=== PATIENT | female | born 1960 | race Caucasian/White ===

== ENCOUNTER 2022-11-06 08:48 | Outpatient (CLI) | payer OTHER, SELFPAY ==
[2022-11-06 09:34] LABS: Hematocrit 46.4 % (37.0-47.0); Hemoglobin 15.2 g/dL (12.0-15.0); Mean Corpuscular HGB Conc 32.8 g/dl (32-36); Mean Corpuscular Hemoglobin 30.6 pg (26-34); Mean Corpuscular Volume 93.4 fl (80-100); Mean Platelet Volume 9.3 fl (7.4-10.4); Platelet Count Result 304 k/mm3 (150-375); Red Blood Count 4.97 M/mm3 (4.2-5.4); White Blood Count 6.7 K/mm3 (4.5-10.0)
[2022-11-06 09:53] LABS: Alanine Aminotransferase 19 U/L (6-35); Albumin Level 3.9 g/dL (3.5-5.1); Alkaline Phosphatase 78 U/L (38-126); Anion Gap 7 mmol/L (8-16); Aspartate Amino Transferase 21 U/L (14-36); Bilirubin,Total 0.4 mg/dL (0.2-1.3); Blood Urea Nitrogen 12 mg/dL (7-17); Calcium 8.5 mg/dL (8.4-10.2); Carbon Dioxide 28 mmol/L (22-30); Chloride 105 mmol/L (98-107); Cholesterol 216 mg/dL (0-200); Estimated Glomerular Filt Rate 57; Glucose 106 mg/dL (65-110); HDL Direct 39 mg/dL; Potassium 3.8 mmol/L (3.4-5.0); Sodium 140 mmol/L (137-145); Triglycerides 96 mg/dL (<150)
[2022-11-06 10:02] LABS: Vitamin D 25 Hydroxy 28.8 ng/mL
[2022-11-06 10:04] LABS: LDL Cholesterol Direct 136 mg/dL
[2022-11-06 10:25] LABS: Cortisol Random 8.91 ug/dL
[2022-11-12 13:08] LABS: Testosterone Free 2.7 pg/mL (0.1-6.4); Testosterone Total 21 ng/dL (2-45)
[2022-11-12 21:26] LABS: Estrogen 97.3 pg/mL
== END 2022-11-06 08:49 | disposition home or self-care (01) ==
LOC: ANHLAB 08:51
PROVIDERS: Visit Provider Nurse Practitioner Family
DX: R42 Dizziness and giddiness (principal); R53.83 Other fatigue; E55.9 Vitamin D deficiency, unspecified; R23.2 Flushing; Z13.1 Encounter for screening for diabetes mellitus; Z13.29 Encounter for screening for other suspected endocrine disorder; Z13.220 Encounter for screening for lipoid disorders
CPT/HCPCS: 36415; 80053; 80061; 82306; 82533; 82607; 82672; 84402; 84403; 84443; 85027

== ENCOUNTER 2023-06-30 10:08 | Outpatient (CLI) | payer OTHER, SELFPAY ==
--- NOTE | ~2023-06-30 | US_ITS ---
EXAMINATION: US transvaginal DATE: 06/30/2023 10:32 INDICATION: Postmenopausal bleeding Comparison:No prior studies for comparison. TECHNIQUE: Multiple transabdominal and endovaginal sonographic images of the pelvis performed. FINDINGS: The uterus measures 10.3 x 6.3 x 7.6 cm. There is an hyperechoic mass of the uterus measuri ng 5.8 cm which may contiguous with the endometrium. Endometrial mass not excluded. Alternatively thi s represents a uterine fibroid. The endometrial complex measures 12 mm. The ovaries are not identified. There is no free fluid in the pelvis. There are no abnormal masses seen on either side. IMPRESSION: 1. Slightly hyperechoic uterine mass contiguous with the endometrium measuring 5.8 cm which may repre sent a uterine fibroid or endometrial. Endometrium is thickened otherwise measuring 12 mm. The differ ential diagnosis includes endometrial hyperplasia, polyp and carcinoma. Biopsy is recommended. Reviewed, dictated and finalized at location L. IMPRESSION: 1. Slightly hyperechoic uterine mass contiguous with the endometrium measuring 5.8 cm which may represent a uterine fibroid or endometrial. Endometrium is thi ckened otherwise measuring 12 mm. The differential diagnosis includes endometri al hyperplasia, polyp and carcinoma. Biopsy is recommended.
== END 2023-06-30 10:09 ==
LOC: MICIMG 10:09
PROVIDERS: PCP Family Medicine; Visit Provider Family Medicine
DX: N95.0 Postmenopausal bleeding (principal)
CPT/HCPCS: 76830

== ENCOUNTER 2023-07-25 00:47 | Day surgery (SDC) | payer OTHER, SELFPAY ==
[2023-07-22 09:58] VITALS: BMI 25.6
--- NOTE | 2023-07-22 10:00 | PC.NURSE ---
Report to the Outpatient Waiting Room, entrance under the green pavilion located off [facility], at time _0830_ on date _[id number]_. Planned Procedure Time: _1030_. Time changes happen often and if your time is changed the preop area will call you the afternoon before. - You and your visitor will be asked to self-screen and do not enter if you have any COVID symptoms. - A mask is optional within the hospital at this time. Patients may have clear liquids (water, carbonated beverages, clear teas, apple juice) until 3 hours prior to surgery with a maximum of 20 ounces. - No food from midnight until time of surgery Take the following medications with a SIP of water the morning of surgery: ___Bupropion DO NOT STOP ANY OF YOUR OTHER PRESCRIPTION MEDICATIONS PRIOR TO SURGERY ?EXCEPT THE FOLLOWING Medications to discontinue per physician Multivitamin Date to take last dose___Stop now. Please no make-up, nail romanian, hairspray, perfume, deodorant, or body powder the day of surgery. No jewelry (including any body piercings) or valuables the day of surgery, leave them at home. Please take a shower or bath the night before, or the morning of, surgery with an antibacterial soap. Wear comfortable, loose fitting clothing. - Jewelry must be removed prior to entering the operating room. Rings and piercings that are not removed may be cut off. - The hospital will not accept responsibility for valuables. - Please leave all valuables, including medications, at home the day of surgery. If you are going home after surgery, a licensed commercial driver must drive you home. - NO public transportation without another adult if you receive anesthesia. - We recommend that an adult stay with you for 24 hours following discharge. - We also recommend that you do not drive, make important decision, drink alcoholic beverages, or take any drugs that were not prescribed by your health care provider for at least 24 hours after your discharge time. Follow any additional instructions given to you from your surgeon. If you or anyone in your household have experienced Covid symptoms in the past week, please notify your surgeon or the nurse liaison at the phone number below for possible testing. Telephone instructions given to __Patient__and asked if any additional questions and then verbalized understanding. Patient advised to call surgeon office or pre surgery nurse liaison [phone] if any additional questions.
--- NOTE | 2023-07-25 08:20 | WPDHPUPDATE1 ---
History and Physical Update Update Date/Time: 07/25/23 08:20 History and Physical has been reviewed, including an updated exam of the patient. There are NO changes in the patient's condition. Risks, benefits, and alternatives have been discussed and questions answered. Patient agrees to proceed with procedure.
--- NOTE | 2023-07-25 08:21 | WPDHPUPDATE1 ---
History and Physical Update Update Date/Time: 07/25/23 08:21 History and Physical has been reviewed, including an updated exam of the patient. There are NO changes in the patient's condition. Risks, benefits, and alternatives have been discussed and questions answered. Patient agrees to proceed with procedure.
--- NOTE | 2023-07-25 08:21 | PM.HPGS ---
History of Present Illness History of Present Illness Consent: Risks, benefits, and alternatives have been discussed and questions answered. Patient agrees to proceed with procedure. Chief complaint: Post Menopausal Bleeding Narrative: Oly Hill is a 63 year old female who presented as a new patient July 08 from her primary physician. The patient reports that she began having pink spotting in 2020 on and off until March of 2023 when she began having vaginal bleeding requiring a change in her tampon and pad approximately 6 times per day with clotting. Primary physician ordered a pelvic ultrasound which was performed week prior to her visit and revealed a thickened endometrium at 12mm as well as a uterine mass suspected to be a fibroid. It was recommended to undergo D&C hysteroscopy. Risks of infection, bleeding, perforation and possible pathology are reviewed. Patient voices understanding and agrees to proceed. Review of Systems Review of Systems: not repeated day of surgery; patient states no changes in status PMFSH Past Medical History Medical History (Updated 07/25/23 @ 08:25 by Meera Shields MD) Anxiety and depression BMI 29.0-29.9,adult Hypercholesterolemia Surgical History Surgical History (Updated 07/25/23 @ 08:24 by Meera Shields MD) H/O section X2 Family History Family History Father Hypertension Malignant neoplasm of prostate Diabetes mellitus Mother Heart disease Hypertension Depression Diabetes mellitus Colon polyp Sibling Diabetes mellitus Social History Social History Smoking packs per day: 1 Smoking cigarettes per day: 20.0 Years smoked: 30 Smoking pack-years: 30.00 Smoking status: Former smoker Tobacco type: cigarettes and e-cigarettes/vaping Second hand tobacco smoke exposure: No Smoking end date: 09/16/14 Additional smoking assessment comments: quit cigarettes sep 2015. 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 Gender identity (if verbalized by the patient): Female Spiritual care concerns: No Meds Home Medications and Allergies Home Medications Medication Instructions Recorded Confirmed Type multivitamin with minerals-folic 1 tablet PO DAILY 10/21/22 02/14/23 History acid 200 mcg chewable tablet (Women's Multivitamin Gummies) meclizine 25 mg tablet 25 mg PO TID PRN dizziness #30 tabs 11/24/22 11/24/22 Rx bupropion HCl 150 mg 24 hr tablet, 150 mg PO QAM #30 tabs 06/30/23 Rx extended release (Wellbutrin XL) alprazolam 0.25 mg tablet 0.25 mg PO DAILY PRN anxiety #10 07/21/23 Rx tabs ondansetron HCl 4 mg tablet 4 mg PO Q6H PRN nausea and 07/21/23 Rx vomiting #30 tabs Allergies Allergy/AdvReac Type Severity Reaction Status Date / Time No Known Allergies Allergy Verified 07/22/23 09:49 Exam Const: General: healthy appearing and alert Orientation/consciousness: patient oriented x3 Resp: Effort & Inspection: normal respiratory effort GI: GI Palp: Yes Soft to palpation, No Tenderness to palpation present (GI) and No Palpable mass present : External Female Exam: normal external appearance Speculum Exam - Vagina: normal appearance of the vagina and normal vaginal discharge Speculum Exam - Cervix: normal appearance of the cervix Bimanual exam- vagina & uterus: uterine size normal (Approximately 10 week size) and consist
[2023-07-25 08:30] VITALS: BP 130/74; PULSE 91; RESP 20; TEMP 36.8; O2SAT 99; BMI 24.7
[2023-07-25] MEDS: ACETAMINOPHEN 500 MG TABLET 1000 MG PO (09:43)
[2023-07-25] MEDS: LACTATED RINGERS 1,000 ML 30 ML IV CONT (09:43)
--- NOTE | 2023-07-25 09:51 | WPDANESEPPF ---
Anes - Initial Pre Proc Eval Procedure: Operation Date: 07/25/23 10:30 Proposed Procedures p Hysteroscopy Dilation and Curettage - Meera Shields MD Date/Time: 07/25/23 09:51 Surgeon: Meera Shields MD Pre Op Diagnosis: Post Menopausal Bleeding Patient Data Age: 63 Gender: F Height: 1.57 m Weight: 61.4 kg Last Vital Signs Temp 36.8 C 07/25/23 08:30 Pulse 91 07/25/23 08:30 Resp 20 07/25/23 08:30 BP 130/74 07/25/23 08:30 Pulse Ox 99 07/25/23 08:30 O2 Del Method Room Air 07/25/23 08:30 Allergies Allergy/AdvReac Type Severity Reaction Status Date / Time No Known Allergies Allergy Verified 07/22/23 09:49 Home Medications Medication Instructions Recorded Confirmed Type multivitamin with minerals-folic 1 tablet PO DAILY 10/21/22 07/25/23 History acid 200 mcg chewable tablet (Women's Multivitamin Gummies) meclizine 25 mg tablet 25 mg PO TID PRN dizziness #30 tabs 11/24/22 07/25/23 Rx bupropion HCl 150 mg 24 hr tablet, 150 mg PO QAM #30 tabs 06/30/23 07/25/23 Rx extended release (Wellbutrin XL) alprazolam 0.25 mg tablet 0.25 mg PO DAILY PRN anxiety #10 07/21/23 07/25/23 Rx tabs ondansetron HCl 4 mg tablet 4 mg PO Q6H PRN nausea and 07/21/23 07/25/23 Rx vomiting #30 tabs Patient hx anesthesia problems: none Family hx anesthesia problems: none Results Review: All pre-operative results and documents have been reviewed as part of the pre-operative evaluation. [facility] Past Medical History Medical History Anxiety and depression BMI 29.0-29.9,adult Hypercholesterolemia Surgical History Surgical History H/O section X2 Family History Family History Father Hypertension Malignant neoplasm of prostate Diabetes mellitus Mother Heart disease Hypertension Depression Diabetes mellitus Colon polyp Sibling Diabetes mellitus Social History Social History Smoking packs per day: 1 Smoking cigarettes per day: 20.0 Years smoked: 30 Smoking pack-years: 30.00 Smoking status: Former smoker Tobacco type: cigarettes and e-cigarettes/vaping Second hand tobacco smoke exposure: No Smoking end date: 09/16/14 Additional smoking assessment comments: quit cigarettes sep 2015. 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 Informed Consent: The patient's anesthetic plan and its attendant risks and benefits were discussed with the patient/family/POA. Questions were solicited and answers provided to the satisfaction of the patient/family/POA.
[2023-07-25 11:19] VITALS: BP 145/71; PULSE 89; RESP 14
--- NOTE | 2023-07-25 11:20 | P.OP_ITS ---
Procedure Note - Detailed Date of Procedure 07/25/23 Pre-op Diagnosis Post Menopausal Bleeding Post-op Diagnosis Same Procedure Performed D&C hysteroscopy Surgeon Meera Shields MD Anesthesia MAC Findings Uterus sounds to 8cm. The endometrium was full of fluffy, papillary, vascular tissue. Description of Procedure The patient was taken to the operating room and placed under anesthesia in the dorsal lithotomy position. She was prepped and draped in the usual sterile fashion. Elliott bivalve speculum was placed in the vagina and the cervix grasped on the anterior lip with a tenaculum. The uterus is sounded to 8cm. The diagnostic hysteroscope was placed and the endometrium was full of tissue making visualization poor. The Aveeta resection device is placed and a large amount of the tissue is resected. When visualization became to poor to cecile nue, hysteroscope was removed. The sharp curette is used to curette the endometrium and a very large amount of tissue was removed. Once no further tissue is noted and most areas have a good uterine cry, all instruments are removed. Sponge, needle, and instrument counts are correct per the OR staff. Patient is awakened from anesthesia and taken to recovery in stable condition. Estimated Blood Loss 50 Drains No Packing No Pathology Yes (Endometrial shavings and curettings) Complications No immediate complications Condition Stable Disposition PACU
[2023-07-25] MEDS: fentaNYL CITRATE INJ (*CRX) 100 MCG/2 ML VIAL 25 MCG IV PUSH ×2 (11:29→11:50)
[2023-07-25 11:45] VITALS: BP 125/68; PULSE 76; RESP 20
[2023-07-25] MEDS: oxyCODONE HCL (*CRX) 5 MG TAB IR PO (11:57)
[2023-07-25 12:15] VITALS: BP 101/74; PULSE 72; RESP 20
== END 2023-07-25 12:25 | disposition home or self-care (01) ==
PROVIDERS: PCP Family Medicine; Visit Provider Obstetrics & Gynecology Gynecology
PROC: 0U5B8ZZ Destruction of Endometrium, Via Natural or Artificial Opening Endoscopic (ICD-10-PCS; CPT 58563; principal; 2023-07-25 10:30)
DX: N95.0 Postmenopausal bleeding (principal); F41.8 Other specified anxiety disorders; E78.00 Pure hypercholesterolemia, unspecified; Z87.891 Personal history of nicotine dependence; F12.90 Cannabis use, unspecified, uncomplicated
CPT/HCPCS: 58558; 88305; 88342; A9270; J2250; J2405; J2704; J3010; J7120

== ENCOUNTER 2023-09-07 11:36 | Outpatient (CLI) | payer OTHER, SELFPAY ==
[2023-09-07 12:37] LABS: Basophils Absolute Auto 0.1 K/mm3 (0.0-0.1); Basophils Percent Auto 0.9 % (0.2-1.2); Eosinophils Absolute Auto 0.1 K/mm3 (0-0.3); Hematocrit 44.6 % (37.0-47.0); Hemoglobin 13.3 g/dL (12.0-15.0); Immature Granulocyte Absolute 0.03 K/mm3 (0.00-0.031); Immature Granulocyte Percent A 0.4 % (0-0.5); Lymphocytes Absolute Auto 2.07 K/mm3 (0.9-3.2); Mean Corpuscular HGB Conc 29.8 g/dl (32-36); Mean Corpuscular Hemoglobin 25.8 pg (26-34); Mean Corpuscular Volume 86.6 fl (80-100); Mean Platelet Volume 9.2 fl (7.4-10.4); Monocytes Absolute Auto 0.5 K/mm3 (0.1-0.6); Monocytes Percent Auto 7.7 % (2.6-8.5); Neutrophils Absolute Auto 4.1 K/mm3 (1.3-6.7); Platelet Count Result 492 k/mm3 (150-375); Red Blood Count 5.15 M/mm3 (4.2-5.4); Red Cell Distribution Width 14.6 % (11.5-14.5); White Blood Count 6.9 K/mm3 (4.5-10.0)
[2023-09-07 12:41] LABS: Alanine Aminotransferase 17 U/L (6-35); Albumin Level 4.5 g/dL (3.5-5.1); Alkaline Phosphatase 87 U/L (38-126); Anion Gap 12 mmol/L (8-16); Aspartate Amino Transferase 24 U/L (14-36); Bilirubin,Total 0.4 mg/dL (0.2-1.3); Blood Urea Nitrogen 8 mg/dL (7-17); Calcium 9.3 mg/dL (8.4-10.2); Carbon Dioxide 26 mmol/L (22-30); Chloride 102 mmol/L (98-107); Estimated Glomerular Filt Rate 56; Glucose 102 mg/dL (65-110); Potassium 3.5 mmol/L (3.4-5.0); Sodium 140 mmol/L (137-145)
[2023-09-07 13:08] LABS: Hypochromasia 1+ (NORMAL); Platelet Estimate Increased (Adequate); Schistocytes None Seen (NORMAL)
== END 2023-09-07 11:37 | disposition home or self-care (01) ==
LOC: ANHLAB 11:40
PROVIDERS: PCP Family Medicine
DX: D49.59 Neoplasm of unspecified behavior of other genitourinary organ (principal)
CPT/HCPCS: 36415; 80053; 85025

== ENCOUNTER 2023-09-12 07:54 | Outpatient (CLI) | payer OTHER, SELFPAY ==
[2023-09-12 09:27] LABS: Iron 40 ug/dL (37-170)
[2023-09-12 09:36] LABS: Percent Iron Saturation 11 % (20-50)
== END 2023-09-12 07:55 | disposition home or self-care (01) ==
LOC: ANHLAB 07:56
PROVIDERS: PCP Family Medicine; Visit Provider Family Medicine
DX: E61.1 Iron deficiency (principal)
CPT/HCPCS: 36415; 82728; 83540; 83550

== ENCOUNTER 2023-09-27 08:00 | Outpatient (CLI) | payer OTHER, SELFPAY ==
--- NOTE | ~2023-09-27 | PE_ITS ---
EXAMINATION: PET skull to mid thigh DATE: 09/27/2023 09:47 INDICATION: Solitary pulmonary nodule, recent hysterectomy TECHNIQUE: Blood glucose level was 134 mg/dL. 9.258 mCi of 18-fluorodeoxyglucose (18-FDG) was adminis tered i.v. Low dose computed tomography (CT) images were acquired from the base of the brain to the p roximal thighs for attenuation correction and anatomic localization. Positron emission tomography (PE T) images were acquired in the same distribution beginning 62 minutes after injection. The dose-lengt h product (DLP) was 747.06 mGy-cm. COMPARISON: 09/03/2023 FINDINGS: Head/neck: No abnormal FDG uptake is identified. Chest: There is a 1.8 x 1.5 cm nodule of the left lung apex with abnormal FDG uptake and SUV max of 7 .1. There is mild emphysema. No additional pulmonary nodules are identified. No pathologically enlarg ed thoracic lymph nodes are identified. The heart size is normal. No pleural effusion or pneumothorax . Calcified coronary artery atherosclerosis is noted. There is subcutaneous gas posteriorly in the ch est wall which extends into the right axilla. Abdomen/pelvis/proximal thighs: No abnormal FDG uptake is identified. Physiologic FDG activity is pre sent in the bowel and urinary tract. There is a 9 mm cyst of the left hepatic lobe. The spleen, pancr eas, gallbladder, and adrenal glands are normal. The right kidney is unremarkable. There is a 4.2 cm cyst of the left kidney upper pole. No pathologically enlarged abdominal or pelvic lymph nodes are id entified. There are no dilated loops of bowel. There is diffuse abdominal and pelvic gas as well as g as in the subcutaneous tissues of the abdominal wall and proximal lower extremities, consistent with history of recent hysterectomy. There is a trace volume of pelvic ascites. Musculoskeletal: No abnormal FDG uptake is identified. IMPRESSION: 1. Left upper lobe nodule with abnormal FDG uptake, consistent with primary bronchogenic carcinoma. C T-guided biopsy is recommended. 2. Diffuse subcutaneous gas and intra-abdominal and pelvic gas, consistent with recent hysterectomy. Reviewed, dictated and finalized at location L. GER MOBILITY IMPRESSION: 1. Left upper lobe nodule with abnormal FDG uptake, consistent with primary bro nchogenic carcinoma. CT-guided biopsy is recommended. 2. Diffuse subcutaneous gas and intra-abdominal and pelvic gas, consistent with recent hysterectomy.
[2023-09-27 08:19] LABS: Glucose Point of Care 134 mg/dl (65-105)
== END 2023-09-27 08:01 | disposition home or self-care (01) ==
LOC: ANHIMG 08:02
PROVIDERS: PCP Family Medicine; Visit Provider Family Medicine
DX: R91.1 Solitary pulmonary nodule (principal); R14.0 Abdominal distension (gaseous)
CPT/HCPCS: 78815; A9552

== ENCOUNTER 2023-09-30 05:42 | Outpatient (CLI) | payer OTHER, SELFPAY ==
[2023-09-29 09:50] VITALS: BMI 24.7
--- NOTE | 2023-09-29 09:50 | PC.NURSE ---
Pre Radiology instructions Report to the outpatient [facility] on date 09/30/23 at time 0900 for procedure Time: 1100. YOU MAY BE MONITORED AT HOSPITAL FOR UP TO 4 HOURS AFTER YOUR PROCEDURE. A visitor will be allowed to accompany the patient into the hospital. You and your visitor will be asked to self-screen and do not enter if you have any COVID symptoms. A mask is OPTIONAL within the hospital. Patients are to have no food or drink 6 hours prior to procedure time Driving will be restricted after the procedure, you must have a person to drive you home. Labs will be drawn in preop area and once reviewed, you will be taken to radiology area for procedure. When the procedure is completed, you will be taken to outpatient where you will be monitored for several hours. You may have one visitor in this area. Other than holding anti-coagulants, patient may take other medication(s) as scheduled. Prior to your appointment date patients are instructed to hold anti-coagulants after discussing with ordering provider to stop. If unable to discontinue anti-coagulants please notify radiologist. ? No aspirin or warfarin (Coumadin) for 7 days prior to the procedure. ? No clopidogrel (Plavix), ticagrelor (Brilinta), prasugrel (Effient) or dabigatran (Pradaxa) for 5 days prior to the procedure. ? No rivaroxaban (Xarelto), apixaban (Eliquis), dipyridamole (Aggrenox or Persantine) or cilostazol (Pletal) for 2 days prior to the procedure. Medications to discontinue per physician: N/A Date to take last dose: N/A Please leave all valuables, including medications, at home the day of procedure. The hospital will not accept responsibility for valuables. Wear comfortable, loose fitting clothing.? Follow any additional instructions given to you from ordering provider. Telephone instructions given to PT CARMEN LOPES and asked if any additional questions and then verbalized understanding. Patient advised to call scheduling provider office or registration scheduling [phone] if any additional questions.
[2023-09-30] VITALS (10 sets, daily range): BP systolic 109–137; BP diastolic 65–73; PULSE 73–95; RESP 16–20; TEMP 36.9; O2SAT 97–100
--- NOTE | ~2023-09-30 | XR_ITS ---
EXAMINATION: XR chest 1V DATE: 09/30/2023 11:39 INDICATION: Left lung nodule status post percutaneous biopsy. TECHNIQUE: A single frontal view of the chest was obtained. COMPARISON: Chest single view 07/23/21 FINDINGS: There is a nodule in left lung upper lobe. No pleural effusion or pneumothorax. The heart s ize is normal. IMPRESSION: 1. Nodule in left lung upper lobe suspicious for primary bronchogenic carcinoma. Reviewed, dictated and finalized at location A. PMENT SERVICES ASSOCIATE IMPRESSION: 1. Nodule in left lung upper lobe suspicious for primary bronchogenic carcinoma .
--- NOTE | ~2023-09-30 | XR_ITS ---
EXAMINATION: XR chest 1V portable DATE: 09/30/2023 14:33 INDICATION: Left lung nodule status post percutaneous biopsy. TECHNIQUE: A single frontal view of the chest was obtained on 2 radiographs. COMPARISON: Chest single view at 12:31 PM FINDINGS: There is a nodule in left lung upper lobe. No pleural effusion or pneumothorax. The heart s ize is normal. IMPRESSION: 1. Nodule in left lung upper lobe suspicious for primary bronchogenic carcinoma. Reviewed, dictated and finalized at location A. A SAMPLER IMPRESSION: 1. Nodule in left lung upper lobe suspicious for primary bronchogenic carcinoma .
--- NOTE | ~2023-09-30 | CT_ITS ---
. EXAMINATION: CT biopsy lung w/imaging DATE: 09/30/2023 11:45 INDICATION: Solitary pulmonary nodule. TECHNIQUE: The procedure including the risks, benefits, and alternatives and possibility of chest tub e placement were discussed with the patient. Risks discussed included infection, hemorrhage, approxim ately 1/3 risk of pneumothorax, approximately 1/10 risk of pneumothorax severe enough to warrant ches t tube placement, and rarely . The patient understood the risks and agreed to proceed. The patie nt was placed prone. The skin overlying the left chest was prepped and draped in sterile fashion. A nesthetic was administered with 1% lidocaine subcutaneously. A 19 gauge outer needle was advanced un susan CT guidance to the lesion of interest. A 20 gauge core biopsy needle was then used to obtain 4 co re biopsy specimens. The needle was removed and the entry site was cleaned and dressed. The mA was ad justed according to patient size. Iterative reconstruction technique was employed. The dose-length pr oduct was 195.10 mGy-cm. There were no immediate complications. FINDINGS: CT images demonstrate the outer needle tip in a 2.2 cm nodule in left lung upper lobe. IMPRESSION: 1. CT-guided core needle biopsy of a 2.2 cm nodule in left lung upper lobe. Reviewed, dictated and finalized at location A. MER OPERATOR THREE KNIFE
--- NOTE | ~2023-09-30 | XR_ITS ---
EXAMINATION: XR chest 1V portable DATE: 09/30/2023 12:35 INDICATION: Lung nodule status post previous biopsy. TECHNIQUE: A single frontal view of the chest was obtained. COMPARISON: Chest single view at 11:38 AM FINDINGS: There is a nodule in left lung upper lobe. No pleural effusion or pneumothorax. The heart s ize is normal. IMPRESSION: 1. Nodule in left lung upper lobe suspicious for primary bronchogenic carcinoma. Reviewed, dictated and finalized at location A. ETIC TAPE COMPOSER OPERATOR IMPRESSION: 1. Nodule in left lung upper lobe suspicious for primary bronchogenic carcinoma .
[2023-09-30 09:35] LABS: Mean Platelet Volume 8.3 fl (7.4-10.4); Platelet Count Result 441 k/mm3 (150-375)
[2023-09-30 09:45] LABS: INR 0.9; Prothrombin Time 12.5 Seconds (11.1-14.7)
== END 2023-09-30 15:05 | disposition home or self-care (01) ==
PROVIDERS: PCP Family Medicine; Visit Provider Radiology Diagnostic Radiology
PROC: BB24ZZZ Computerized Tomography (CT Scan) of Bilateral Lungs (ICD-10-PCS; CPT 32408; principal; 2023-09-30 11:00)
DX: C34.12 Malignant neoplasm of upper lobe, left bronchus or lung (principal)
CPT/HCPCS: 32408; 36415; 71045; 85049; 85610; 88305; 88342

== ENCOUNTER 2023-11-18 12:29 | Outpatient (CLI) | payer OTHER, SELFPAY ==
[2023-11-18 13:52] LABS: Alveolar/Arterial O2 Gradient 22.5 mmHg; Base Excess ABG -0.3 mEq/l (+/-2.0); Carboxyhemoglobin 0.4 % THb (0-2.0); Fractional Inspired Oxygen 21 %; HCO3 ABG 23.5 mEq/l (22.0-26.0); Methemoglobin ABG 0.3 %THb (0-1.5); Oxygen Content ABG 17.9 %vol (16.0-22.0); Oxygen Saturation ABG 96.7 % (95.0-100.0); Oxyhemoglobin 95.6 % THb (90.0-100.0); PCO2 ABG 35.5 mmHg (35.0-45.0); PO2 ABG 84.7 mmHg (80.0-100.0); PO2 FiO2 Ratio Arterial Blood 4.03 %; Reduced Hemoglobin 3.7 %THb (0-5.0); Total Hemoglobin 13.3 g/dL (12.0-18.0); pH ABG 7.438 (7.350-7.450)
[2023-11-18 14:02] LABS: Device ROOM AIR; Modified Allen's Test Pass
--- NOTE | 2023-11-18 16:24 | WPDSIXMINUTE ---
Six Minute Walk Procedure Procedure Performed Pulmonary Stress Test (6 min walk) Six Minute Walk Six Minute Walk: This is a 6 minute walk test. The test was performed and interpreted in accordance with the 2014 ERS/ATS task force guidelines. Findings:? The patient's resting room air oxygen saturation measured by pulse oximetry was 82% and heart rate was 99 bpm.? Patient ambulated for 335 meters and oxygen saturation remained 94 to 98%.? Heart rate at the end of the study was 106 bpm. The patient did not qualify for supplemental oxygen at rest or with ambulation. There are no prior studies for comparison.
--- NOTE | 2023-11-18 16:25 | WPDPFTINT ---
PFT Procedure Performed PFT Procedure Performed Spirometry with Pre/Post Bronchodilator Plethysmography (Lung Vol) Diffusing Cap (DLCO) Flow Vol Loop PFT Interpretation This is a pulmonary function test with pre and post-bronchodilator spirometry, plethysmography, diffusing capacity and rest room air arterial blood gas.? The test was performed and results interpreted in accordance with the 2019 and 2005 ATS/ERS Task Force guidelines respectively using the Global Lung Function Initiative-2012 reference equations. Patient demonstrated good effort and cooperation. Reproducibility criteria were met. The quality of the pre bronchodilator spirometry maneuver was Grade A and post bronchodilator spirometry maneuver was Grade A. Findings: Spirometry:? The contour the inspiratory and expiratory flow tracing are normal.? The pre bronchodilator FVC is 3.84 L, 132% predicted.? The pre bronchodilator FEV1 is 2.67 L, 116% predicted.? The pre bronchodilator FEV1:? FVC ratio 70%.? The post bronchodilator FVC is 3.72 L, representing a 3% decrease.? The post bronchodilator FEV1 is 2.74 L, representing a 3% increase.? The post bronchodilator FEV1: FVC ratio 74%.? Plethysmography:? The total lung capacity is 5.97 L, 126% predicted.? The functional residual capacity is 3.78 L, 142% predicted.? The residual volume is 2.13 L, 112% predicted.? Diffusing capacity:? The diffusing capacity unadjusted for hemoglobin and carboxyhemoglobin is 17.0, 82% predicted.? The diffusing capacity adjusted for alveolar volume is 3.25, 72% predicted. Rest room arterial blood gas: PH 7.44, PaCO2 36, PaO2 85. Impression: The spirometry is normal without evidence of an obstructive abnormality. There is no significant improvement after inhaling a single dose of albuterol.? The total lung capacity and functional residual capacity are increased with a normal residual volume:? Total lung capacity ratio consistent with large lungs. The diffusing capacity is normal.? The rest room arterial blood gas is normal. There are no prior studies for comparison
== END 2023-11-18 12:30 | disposition home or self-care (01) ==
PROVIDERS: Visit Provider Internal Medicine Pulmonary Disease
DX: J44.9 Chronic obstructive pulmonary disease, unspecified (principal)
CPT/HCPCS: 36600; 82375; 82805; 83050; 94060; 94618; 94726; 94729

== ENCOUNTER 2024-01-10 08:03 | Outpatient (CLI) | payer OTHER, SELFPAY ==
--- NOTE | ~2024-01-10 | CT_ITS ---
EXAMINATION: CT diagnostic chest w con DATE: 01/10/2024 08:51 INDICATION: MALIGNANT NEOPLASM OF LUNG,UNSPECIFIED TECHNIQUE: Computed tomography (CT) of the chest was performed with 100 mL Omnipaque-350 intravenous contrast. Additional 3D reconstructions utilizing coronal maximum intensity projection (MIP) were per formed. Automated exposure control and iterative reconstruction technique were employed. The dose-sydnee gth product was 134.09 mGy-cm. COMPARISON: PET/CT dated 09/27/2023 FINDINGS: Mild emphysema. Postoperative change of prior left upper lobectomy with mild scarring along the jorge luis ediastinal superior segment of the left lower lobe which extends to the apex. A volume loss in left h emithorax with elevation the left hemidiaphragm. No suspicious pulmonary nodules, pneumonia, pulmonar y edema or pleural effusion. Arch size is normal. No pericardial effusion. Thoracic aorta is normal i n caliber with no dissection. No pathologically enlarged thoracic lymphadenopathy. Unchanged 7 mm enh ancing nodule at the medial limb of the left adrenal gland which was without increased FDG uptake on the prior PET study. 4.2 cm exophytic left renal cyst. 1.6 cm cyst in the left hepatic lobe. Bones ar e unremarkable. IMPRESSION: 1. Interval left upper lobectomy for resection of a lung cancer. No evident residual, recurrent or gutierrez spected metastatic disease. 2. 7 mm enhancing nodule at the medial limb of the left adrenal gland which was without evident FDG u ptake on the prior PET study. Consider follow-up pre and postcontrast adrenal protocol MRI. Reviewed, dictated and finalized at location A. IMPRESSION: 1. Interval left upper lobectomy for resection of a lung cancer. No evident res idual, recurrent or suspected metastatic disease. 2. 7 mm enhancing nodule at the medial limb of the left adrenal gland which was without evident FDG uptake on the prior PET study. Consider follow-up pre and postcontrast adrenal protocol MRI.
[2024-01-10 08:50] LABS: Basophils Absolute Auto 0.1 K/mm3 (0.0-0.1); Eosinophils Absolute Auto 0.2 K/mm3 (0-0.3); Eosinophils Percent Auto 3.3 % (0-4.4); Hematocrit 45.8 % (37.0-47.0); Immature Granulocyte Absolute 0.03 K/mm3 (0.00-0.031); Immature Granulocyte Percent A 0.4 % (0-0.5); Lymphocytes Absolute Auto 1.83 K/mm3 (0.9-3.2); Lymphocytes Percent Auto 26.6 % (18.3-44.2); Mean Corpuscular HGB Conc 30.6 g/dl (32-36); Mean Corpuscular Hemoglobin 27.9 pg (26-34); Mean Corpuscular Volume 91.2 fl (80-100); Mean Platelet Volume 9.3 fl (7.4-10.4); Monocytes Absolute Auto 0.5 K/mm3 (0.1-0.6); Monocytes Percent Auto 7.9 % (2.6-8.5); Neutrophils Absolute Auto 4.2 K/mm3 (1.3-6.7); Neutrophils Percent Auto 60.8 % (45.5-73.1); Platelet Count Result 361 k/mm3 (150-375); Red Blood Count 5.02 M/mm3 (4.2-5.4); Red Cell Distribution Width 15.8 % (11.5-14.5); White Blood Count 6.9 K/mm3 (4.5-10.0)
[2024-01-10 08:53] LABS: Estimated Glomerular Filt Rate > 60
[2024-01-10 09:08] LABS: Alanine Aminotransferase 15 U/L (6-35); Albumin Level 4.5 g/dL (3.5-5.1); Alkaline Phosphatase 106 U/L (38-126); Anion Gap 8 mmol/L (8-16); Aspartate Amino Transferase 21 U/L (14-36); Bilirubin,Total 0.5 mg/dL (0.2-1.3); Blood Urea Nitrogen 14 mg/dL (7-17); Calcium 9.7 mg/dL (8.4-10.2); Carbon Dioxide 29 mmol/L (22-30); Chloride 104 mmol/L (98-107); Estimated Glomerular Filt Rate 56; Glucose 101 mg/dL (65-110); Iron 73 ug/dL (37-170); Potassium 3.7 mmol/L (3.4-5.0); Sodium 141 mmol/L (137-145)
[2024-01-10 09:17] LABS: Percent Iron Saturation 17 % (20-50)
[2024-01-10 09:44] LABS: Ferritin 8.79 ng/mL (11.1-264)
== END 2024-01-10 08:04 | disposition home or self-care (01) ==
PROVIDERS: PCP Family Medicine; Visit Provider Internal Medicine Hematology & Oncology
DX: C34.90 Malignant neoplasm of unspecified part of unspecified bronchus or lung (principal); D64.9 Anemia, unspecified
CPT/HCPCS: 36415; 71260; 80053; 82728; 83540; 83550; 85025; Q9967

== ENCOUNTER 2024-04-27 08:07 | Outpatient (CLI) | payer OTHER, SELFPAY ==
--- NOTE | ~2024-04-27 | MR_ITS ---
EXAMINATION: MR abdomen wo/w con DATE: 04/27/2024 09:58 INDICATION: Adrenal mass. Lung cancer. TECHNIQUE: Magnetic resonance imaging (MRI) of the abdomen was performed without and with 13 mL Multi Adriel intravenous contrast. COMPARISON: PET/CT 09/27/2023, chest CT 04/27/24, 01/10/24, 09/13/23 FINDINGS: There are cysts in the liver measuring up to 15 mm. The gallbladder, spleen, pancreas, and right adre nal gland are normal. There is thickening of left adrenal gland. There are cysts in the kidneys measu ring up to 4.2 cm on the left. There are no dilated loops of bowel. There is no ascites. There are no pathologically enlarged lymph nodes. IMPRESSION: 1. Thickening of left adrenal gland, stable from 09/13/2023, likely benign. Reviewed, dictated and finalized at location E.
--- NOTE | ~2024-04-27 | CT_ITS ---
Clinical Indication: Lung cancer CT Scan of the Chest with Contrast: Technique: Contiguous sections were acquired throughout the chest after intravenous administration of 75 cc of Omnipaque 350. Dose reduction technique was used on this scan by utilizing automated exposu re control and iterative reconstruction technique. The dose-length product (DLP) was 136.00 mGy-cm. COMPARISON: 01/10/2024 Findings: There is no evidence of any significant mediastinal, hilar or axillary lymphadenopathy. There is no f illing defect in the pulmonary arterial tree to suggest pulmonary embolus. There is no evidence of ao rtic dissection or aneurysm. There is no evidence of pleural or pericardial effusion. Status post left upper lobectomy. Minimal scarring at the lingula noted. Right lung clear. Images through the upper abdomen reveal no abnormalities. Impression: No evidence of active malignancy or metastatic disease. Status post left upper lobectomy. Reviewed, dictated and finalized at [facility]. Impression: No evidence of active malignancy or metastatic disease. Status post left upper lobectomy.
--- NOTE | ~2024-04-27 | MR_ITS ---
EXAMINATION: MR pelvis wo/w con DATE: 04/27/2024 09:58 INDICATION: Adrenal mass. Lung cancer. TECHNIQUE: Magnetic resonance imaging (MRI) of the pelvis was performed without and with 13 mL MultiH ance intravenous contrast. COMPARISON: Chest CT 04/27/2024, 09/13/2023 FINDINGS: Right adrenal gland is normal. There is thickening of left adrenal gland. There are no dilated loops of bowel. There are no pathologically enlarged lymph nodes. There is physiologic fluid in the pelvis. IMPRESSION: 1. Thickening of left adrenal gland, stable from 09/13/2023, likely benign. Reviewed, dictated and finalized at location E.
[2024-04-27 08:44] LABS: Estimated Glomerular Filt Rate 56
== END 2024-04-27 08:08 | disposition home or self-care (01) ==
PROVIDERS: PCP Family Medicine; Visit Provider Internal Medicine Hematology & Oncology
DX: C34.90 Malignant neoplasm of unspecified part of unspecified bronchus or lung (principal); E27.8 Other specified disorders of adrenal gland; Z90.2 Acquired absence of lung [part of]
CPT/HCPCS: 71260; 72197; 74183; A9577; Q9967

== ENCOUNTER 2024-04-30 11:41 | Outpatient (CLI) | payer OTHER, SELFPAY ==
[2024-04-30 12:10] LABS: Basophils Absolute Auto 0.1 K/mm3 (0.0-0.1); Basophils Percent Auto 0.8 % (0.2-1.2); Eosinophils Absolute Auto 0.2 K/mm3 (0-0.3); Hematocrit 43.9 % (37.0-47.0); Hemoglobin 14.5 g/dL (12.0-15.0); Immature Granulocyte Absolute 0.03 K/mm3 (0.00-0.031); Immature Granulocyte Percent A 0.4 % (0-0.5); Lymphocytes Absolute Auto 1.81 K/mm3 (0.9-3.2); Lymphocytes Percent Auto 24.5 % (18.3-44.2); Mean Corpuscular Hemoglobin 29.5 pg (26-34); Mean Corpuscular Volume 89.2 fl (80-100); Mean Platelet Volume 9.3 fl (7.4-10.4); Monocytes Absolute Auto 0.6 K/mm3 (0.1-0.6); Monocytes Percent Auto 7.7 % (2.6-8.5); Neutrophils Absolute Auto 4.8 K/mm3 (1.3-6.7); Neutrophils Percent Auto 64.6 % (45.5-73.1); Platelet Count Result 269 k/mm3 (150-375); Red Blood Count 4.92 M/mm3 (4.2-5.4); Red Cell Distribution Width 14.4 % (11.5-14.5); White Blood Count 7.4 K/mm3 (4.5-10.0)
[2024-04-30 12:21] LABS: Alanine Aminotransferase 15 U/L (6-35); Albumin Level 4.5 g/dL (3.5-5.1); Alkaline Phosphatase 87 U/L (38-126); Anion Gap 9 mmol/L (4-12); Aspartate Amino Transferase 21 U/L (14-36); Bilirubin,Total 0.3 mg/dL (0.2-1.3); Blood Urea Nitrogen 14 mg/dL (7-17); Calcium 9.3 mg/dL (8.4-10.2); Carbon Dioxide 26 mmol/L (22-30); Chloride 105 mmol/L (98-107); Estimated Glomerular Filt Rate > 60; Glucose 93 mg/dL (65-110); Potassium 3.6 mmol/L (3.4-5.0); Sodium 140 mmol/L (137-145)
== END 2024-04-30 11:42 | disposition home or self-care (01) ==
LOC: ANHLAB 11:43
PROVIDERS: PCP Family Medicine; Visit Provider Internal Medicine Hematology & Oncology
DX: C34.90 Malignant neoplasm of unspecified part of unspecified bronchus or lung (principal)
CPT/HCPCS: 36415; 80053; 85025

== ENCOUNTER 2024-07-27 12:58 | Outpatient (CLI) | payer OTHER, SELFPAY ==
--- NOTE | ~2024-07-27 | CT_ITS ---
Clinical Indication: Lung cancer CT Scan of the Chest with Contrast: Technique: Contiguous sections were acquired throughout the chest after intravenous administration of 25 cc of Omnipaque 350. Dose reduction technique was used on this scan by utilizing automated exposu re control and iterative reconstruction technique. The dose-length product (DLP) was 217.25 mGy-cm. COMPARISON: 04/27/2024 Findings: There is no evidence of any significant mediastinal, hilar or axillary lymphadenopathy. There is no f illing defect in the pulmonary arterial tree to suggest pulmonary embolus. There is no evidence of ao rtic dissection or aneurysm. There is no evidence of pleural or pericardial effusion. Status post left upper lobectomy. No pulmonary nodule or consolidation evident. Probable mild emphyse ma. Images through the upper abdomen reveal no abnormalities. Impression: No evidence of active malignancy or metastatic disease. Status post left upper lobectomy. Mild emphysema. Reviewed, dictated and finalized at [facility]. Impression: No evidence of active malignancy or metastatic disease. Status post left upper lobectomy. Mild emphysema.
[2024-07-27 12:42] LABS: Estimated Glomerular Filt Rate 56
[2024-07-27 13:48] LABS: Basophils Percent Auto 0.9 % (0.2-1.2); Eosinophils Absolute Auto 0.1 K/mm3 (0-0.3); Eosinophils Percent Auto 2.1 % (0-4.4); Hematocrit 43.1 % (37.0-47.0); Hemoglobin 14.3 g/dL (12.0-15.0); Immature Granulocyte Absolute 0.01 K/mm3 (0.00-0.031); Immature Granulocyte Percent A 0.2 % (0-0.5); Lymphocytes Absolute Auto 1.06 K/mm3 (0.9-3.2); Lymphocytes Percent Auto 25.1 % (18.3-44.2); Mean Corpuscular HGB Conc 33.2 g/dl (32-36); Mean Corpuscular Hemoglobin 30.8 pg (26-34); Mean Corpuscular Volume 92.9 fl (80-100); Mean Platelet Volume 9.6 fl (7.4-10.4); Monocytes Absolute Auto 0.5 K/mm3 (0.1-0.6); Monocytes Percent Auto 11.8 % (2.6-8.5); Neutrophils Absolute Auto 2.5 K/mm3 (1.3-6.7); Neutrophils Percent Auto 59.9 % (45.5-73.1); Platelet Count Result 224 k/mm3 (150-375); Red Blood Count 4.64 M/mm3 (4.2-5.4); Red Cell Distribution Width 12.5 % (11.5-14.5); White Blood Count 4.2 K/mm3 (4.5-10.0)
[2024-07-27 14:07] LABS: Alanine Aminotransferase 14 U/L (6-35); Albumin Level 4.1 g/dL (3.5-5.1); Alkaline Phosphatase 93 U/L (38-126); Anion Gap 9 mmol/L (4-12); Aspartate Amino Transferase 23 U/L (14-36); Bilirubin,Total 0.4 mg/dL (0.2-1.3); Blood Urea Nitrogen 11 mg/dL (7-17); Calcium 8.6 mg/dL (8.4-10.2); Carbon Dioxide 25 mmol/L (22-30); Chloride 102 mmol/L (98-107); Estimated Glomerular Filt Rate > 60; Glucose 91 mg/dL (65-110); Potassium 3.6 mmol/L (3.4-5.0); Sodium 136 mmol/L (137-145)
[2024-07-27 14:55] LABS: Free T4 Free Thyroxine 1.09 ng/mL (0.78-2.19); Vitamin D 25 Hydroxy 31.4 ng/mL
[2024-07-31 11:27] LABS: FSH 136.9 mIU/mL
[2024-08-02 16:24] LABS: Estrogen 64 pg/mL
== END 2024-07-27 12:59 | disposition home or self-care (01) ==
PROVIDERS: PCP Family Medicine; Visit Provider Internal Medicine Hematology & Oncology
DX: F41.8 Other specified anxiety disorders (principal); E55.9 Vitamin D deficiency, unspecified; Z13.29 Encounter for screening for other suspected endocrine disorder; R23.2 Flushing; C34.90 Malignant neoplasm of unspecified part of unspecified bronchus or lung; J43.9 Emphysema, unspecified
CPT/HCPCS: 36415; 71260; 80053; 82306; 82672; 83001; 84439; 84443; 85025; Q9967

== ENCOUNTER 2024-12-14 14:24 | Outpatient (CLI) | payer OTHER, SELFPAY ==
[2024-12-14 15:02] LABS: Alanine Aminotransferase 16 U/L (6-35); Albumin Level 4.8 g/dL (3.5-5.1); Alkaline Phosphatase 102 U/L (38-126); Anion Gap 12 mmol/L (4-12); Aspartate Amino Transferase 23 U/L (14-36); Bilirubin,Total 0.7 mg/dL (0.2-1.3); Blood Urea Nitrogen 11 mg/dL (7-17); Calcium 9.6 mg/dL (8.4-10.2); Carbon Dioxide 28 mmol/L (22-30); Chloride 100 mmol/L (98-107); Estimated Glomerular Filt Rate > 60; Glucose 95 mg/dL (65-110); Potassium 3.3 mmol/L (3.4-5.0); Sodium 140 mmol/L (137-145)
[2024-12-14 15:04] LABS: Basophils Absolute Auto 0.1 K/mm3 (0.0-0.1); Eosinophils Absolute Auto 0.2 K/mm3 (0-0.3); Eosinophils Percent Auto 3.1 % (0-4.4); Hematocrit 46.8 % (37.0-47.0); Hemoglobin 15.6 g/dL (12.0-15.0); Immature Granulocyte Absolute 0.04 K/mm3 (0.00-0.031); Immature Granulocyte Percent A 0.6 % (0-0.5); Lymphocytes Absolute Auto 1.58 K/mm3 (0.9-3.2); Lymphocytes Percent Auto 23.1 % (18.3-44.2); Mean Corpuscular HGB Conc 33.3 g/dl (32-36); Mean Corpuscular Hemoglobin 30.4 pg (26-34); Mean Corpuscular Volume 91.1 fl (80-100); Mean Platelet Volume 9.3 fl (7.4-10.4); Monocytes Absolute Auto 0.6 K/mm3 (0.1-0.6); Monocytes Percent Auto 8.3 % (2.6-8.5); Neutrophils Absolute Auto 4.4 K/mm3 (1.3-6.7); Neutrophils Percent Auto 63.9 % (45.5-73.1); Platelet Count Result 284 k/mm3 (150-375); Red Blood Count 5.14 M/mm3 (4.2-5.4); Red Cell Distribution Width 12.2 % (11.5-14.5); White Blood Count 6.8 K/mm3 (4.5-10.0)
[2024-12-14 17:01] LABS: Estimated Glomerular Filt Rate 56
== END 2024-12-14 14:25 | disposition home or self-care (01) ==
LOC: ANHIMG 14:27
PROVIDERS: PCP Internal Medicine; Visit Provider Internal Medicine Hematology & Oncology
DX: C34.90 Malignant neoplasm of unspecified part of unspecified bronchus or lung (principal); R91.1 Solitary pulmonary nodule; J43.9 Emphysema, unspecified; Z90.2 Acquired absence of lung [part of]
CPT/HCPCS: 36415; 71260; 80053; 85025; Q9967

== ENCOUNTER 2025-05-08 07:48 | Outpatient (CLI) | payer OTHER, SELFPAY ==
--- OUTSIDE RECORDS SUMMARY | 2025-05-08 07:54 | XMS_ITS | Clinical Summary ---
Author Organization [facility] Medical Office Building [address] Address [address] [place] [address] Care Team Providers Care Customer Support Assistant Name Role Phone Unknown, Notinfile Unavailable Unavailable No, Physician Primary Care Provider [phone] Allergies No known active allergies Medications buPROPion XL (WELLBUTRIN XL) 150 mg 24 hr tabletIndicatio ns:Moderate episode of recurrent major depressive disorder (HCC) Take 1 tablet (150 mg total) by mouth every morning 90 tablet 04/21/2021 Active Active Problems Problem Noted Date Diagnosed Date Moderate episode of recurrent major depressive d isorder 04/21/2021 Assessment & Plan (04/21/2021 12:16 PM CDT): Restart Wellbutrin. Referred to psychiatry. Patient is aware that if she believe she is a harm to herself or to others she has to go to the nearest emergency room. Labs ordered. Loss of taste 04/21/2021 Loss of smell 04/21/2021 History of 2019 novel coronavirus disease (COVID -19) 04/21/2021 Postmenopausal bleeding 04/21/2021 Assessment & Plan (04/21/2021 12:16 PM CDT): Refer to Gyne for further evaluation and management. Immunizations Immunization Administration Dates Next Due Influenza, Unspecified 07/17/2020(Deferr ed: Patient Refused),07/17/2019(Deferred: Patient Refused) Surgical History Surgery Date Site/Laterality Comments SECTION Medical History Medical History Date Comments Depression Family History Medical History Relation Name Comments Diabetes Father Diabetes Mother Diabetes Sister Relation Name Status Comments Father Alive Mother Sister Social History Tobacco Use Types Packs/Day Years Used Date Smoking Tobacco: Former Vaping Q uit: 2014 Smokeless Tobacco: Never AUDIT-C Answer Date Recorded Q1: How often do you have a drink containing alc ohol? 2-3 times a week 05/08/2021 Q2: How many drinks containi ng alcohol do you have on a typical day when you are drinking? 1 or 2 05/08/2021 Q3: How often do you have si x or more drinks on one occasion? Never 05/08/2021 PHQ-2 Answer Date Recorded PHQ-2 Total Score (If total score is 3 or more points, staff should administer the PHQ-9) 6 04/21/2021 Personal Safety Answer Date Recorded Getting School Help Needed Not on file 12/30 Comments No Sex and Gender Information Value Date Recorded Sex Assigned at Not on file Legal Sex Female 10:34 AM IV RN Gender Identity Not on file Sexual Orientation Not on file Obstetrics History Para Term AB IAB SAB Ectopic Multiple Livin g Live Births 2 2 2 2 Date Outcome GA Total Labor Labor/2nd/3rd Weight Sex Type Anes PTL Velvet A1 A5 Name Clin Last Filed Vital Signs Vital Sign Reading Time Taken Comments Blood Pressure 139/84 05/27/2021 1:34 PM CDT Pulse 90 05/08/2021 10:35 AM CDT Temperature 36.8 C (98.2 F) 04/21/2021 8:42 AM CDT Respiratory Rate 16 04/21/2021 8:42 AM CDT Oxygen Saturation 98% 05/08/2021 10: 35 AM CDT Inhaled Oxygen Concentration - - Weight 76.1 kg (167 lb 12.8 oz) 05/27/2021 1:34 PM CDT Height 157.5 cm (5' 2) 05/27/2021 1:34 PM CDT Body Mass Index 30.69 05/27/2021 1:34 PM CDT Plan of Treatment Not on file Insurance [facility] [employer] Address: [facility] [address] [place] [address] [employer] Address: [facility] [address] [place] [address] [employer] Address: [facility] [id number] [place] [address] [employer] Address: [facility] [address] [place] [address] Care Teams Customer Support Assistant Relationship Specialty Start Date End Date No, Physician PCP - General 02/15/24 Unknown, Notinfile 04/16/21
--- OUTSIDE RECORDS SUMMARY | 2025-05-08 07:54 | XMS_ITS | Encounter Summary ---
Author Organization [facility] Address [address] [place] [address] Care Team Providers Care Machine Maintenance Supervisor Name Role Phone Levi Maria DO Primary Care Provider [phone] Encounter Details Date Type Department Care Team (Late st Contact Info) Description 12/25/1999 Outpatient Historical [facility] Primary Care [address] [place] [address] Stan Jeffrey DO NO ADDRESS ON FILE Social History Tobacco Use Types Packs/Day Years Used Date Smoking Tobacco: Never Assessed Comments Unknown Sex and Gender Information Value Date Recorded Sex Assigned at Not on file Legal Sex Female 3:43 AM 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 OF 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 Gender Identity Not on file Sexual Orientation Not on file documented as of this encounter Plan of Treatment Upcoming Encounters Date Type Department Care Team (Late st Contact Info) Description 07/05/2025 12:45 PM CDT Office Visit [facility] Oncology and Hematology - [place] [address] [place] [address] [address] [place] [address] Jimmy Cunningham MD [address] [facility] [address] [place] [address] documented as of this encounter Visit Diagnoses Not on filedocumented in this encounter Care Teams Machine Maintenance Supervisor Relationship Specialty Start Date End Date Levi Maria DO [address] [facility] [address] [place] [address] PCP - General Internal Medicine 12/21/24 documented as of this encounter
--- OUTSIDE RECORDS SUMMARY | 2025-05-08 07:54 | XMS_ITS | Clinical Summary ---
Author Organization [facility] Eulalia Arringtonblanche Address [address] [place] [address] Care Team Providers Care Wound Care Center Consultant Name Role Phone Levi Maria DO Primary Care Provider [phone] Allergies No known active allergies Medications cholecalciferol, vitamin D3, 5,000 unit Take 400 Units by mouth daily. Active ascorbic acid, vitamin C, (VITAMIN C) 1,000 mg Tablet Take 1,000 mg by mouth daily. Active POTASSIUM AMINOBENZOATE ORAL Take by mouth 1 time daily as needed (muscle cramps). 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 Lung mass 10/05/2023 History of 2019 novel coronavirus disease (COVID -19) 04/21/2021 Encounters Date Type Department Care Team Description 05/01/2025 External Device Data STL ABSTRACTION Provider, Abstract 04/30/2025 External Device Data STL ABSTRACTION Provider, Abstract 04/09/2025 External Device Data STL ABSTRACTION Provider, Abstract 04/02/2025 External Device Data STL ABSTRACTION Provider, Abstract 03/12/2025 External Device Data STL ABSTRACTION Provider, Abstract 03/06/2025 External Device Data STL ABSTRACTION Provider, Abstract 03/05/2025 External Device Data STL ABSTRACTION Provider, Abstract from Last 3 Months Family History Medical History Relation Name Comments Diabetes Father Prostate Cancer Father Diabetes Mother Diabetes Sister Relation Name Status Comments Brother 1 Alive Brother 2 Alive Daughter Alive Father Alive Mother Sister Alive Son Alive Social History Tobacco Use Types Packs/Day Years Used Date Smoking Tobacco: Former Cigarettes 1 35 1 - 2014 Smokeless Tobacco: Never Tobacco Cessation:Counseling Given: Not Answered Alcohol Use Standard Drinks/Week Comments Yes 0 (1 standard drink = 0.6 oz pur e alcohol) occasional Comments No Sex and Gender Information Value Date Recorded Sex Assigned at Not on file 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 Gender Identity Not on file Sexual Orientation Not on file Last Filed Vital Signs Vital Sign Reading Time Taken Comments Blood Pressure 132/83 12/21/2024 12:14 PM MOTORCYCLE ASSEMBLER Pulse 74 12/21/2024 12:11 PM MOTORCYCLE ASSEMBLER Temperature 35.8 C (96.5 F) 12/21/2024 12:11 PM MOTORCYCLE ASSEMBLER Respiratory Rate 16 12/21/2024 12:11 PM MOTORCYCLE ASSEMBLER Oxygen Saturation 98% 12/21/2024 12:11 PM MOTORCYCLE ASSEMBLER Inhaled Oxygen Concentration - - Weight 73.7 kg (162 lb 6.4 oz) 12/21/2024 12:11 PM MOTORCYCLE ASSEMBLER Height 157.5 cm (5' 2) 12/28/2023 10:24 AM CDT Body Mass Index 29.7 12/28/2023 10:24 AM CDT Plan of Treatment Upcoming Encounters Date Type Department Care Team (Late st Contact Info) Description 07/05/2025 12:45 PM CDT Office Visit [facility] Oncology and Hematology - [place] [address] [place] [address] [address] [place] [address] Jimmy Cunningham MD [address] [facility] [address] [place] [address] Health Maintenance Due Date Last Done Comments DTAP/TDAP/TD VACCINES (1 - Tdap) 1981 BREAST CANCER SCREENING 2002 COLORECTAL SCREENING 2007 Colorectal Cancer Screening 2007 FIT-DNA Q 3 years 2007 FIT/FOBT Q 1 year 2007 Flex Sig/CT Colonography Q 5 years 2007 ZOSTER VACCINE (1 of 2) 2012 INFLUENZA VACCINE (#1) 2025 Pre-Diabetes and Diabetes Screening 11/02/202611/02 RSV VACCINE (60+ or ) (1 - 1-dose 75+ series) 2037 Medical Devices Implanted Type Area Telephone Surveyor Device Identifier Shelf Expiration Date Model / Serial / Lot Clip Hemolok Ml [id number] - Csc - [id number] Implanted:Qty : 1 on 12/01/2023 by Vicente Lorenzo MD at [facility] Clip Left: Lung TELEFLEX- WECK CLOSURE SYS 12/06/2027 [id number] / / [id number] Sealant Progel Pleural 4ml [id number] - [id number] Implanted:Qty : 1 on 12/01/2023 by Vicente Lorenzo MD at [facility] Tissue Left: Lung BARD DAVOL [id number] 01/07/2025 [id number] / / [id number] Procedures Procedure Name Priority Date/Time Associated Diagnosis Comments HEMOGLOBIN A1C Routine 11/02/2023 3:59 PM MOTORCYCLE ASSEMBLER Lung nodule Shortness of breath from Last 3 Months or Most Recently Relevant to Health Maintenance Results * HEMOGLOBIN A1C (11/02/2023 3:59 PM MOTORCYCLE ASSEMBLER) HEMOGLOBIN A1C 5.6 <5.7 % 11/02/2023 5:26 PM MOTORCYCLE ASSEMBLER [facility] EST. AVG GLUCOSE, A1C 114 mg/dL 11/02/2023 5:26 PM MOTORCYCLE ASSEMBLER [facility] Blood Venipuncture / Unknown 11/02/2023 3:59 PM MOTORCYCLE ASSEMBLER 11/02/2023 4:53 PM MOTORCYCLE ASSEMBLER Narrative [facility] - 11/02/2023 5:26 PM MOTORCYCLE ASSEMBLER HGB A1C INTERPRETATION NORMAL: <5.7% PRE-DIABETES: 5.7 - 6.4% DIABETES: 6.5% OR GREATER us Aida Issawi MIXING TANK OPERATOR CHEMISTRY ORDERABLES Final Resu lt [facility] [employer] [facility] CLIA# [id number] TOLBERTNIKKI JACKMAN MARY[place] [id number] from Last 3 Months or Most Recently Relevant to Health Maintenance Insurance RX OPTUM RX Member Subscriber Plan / Payer (Ef fective 2023-Present) Name:Oly Hill Relation to Subscriber:Not on file Name:Oly Hill Subscriber ID:Not on file Date of :1960 (Work) Payer ID:Not on file Type:RX Commercial Address: [place] [place] [address]ACK[place] Advance Directives For more information, please contact: [phone] * Full Code (Latest Code Status on File) Date Activated Date Inactivated Comments 12/01/2023 2:19 PM 12/06/2023 1:48 PM * Full Code Date Activated Date Inactivated Comments 12/01/2023 6:11 AM 12/01/2023 2:19 PM Care Teams Wound Care Center Consultant Relationship Specialty Start Date End Date Levi Maria DO [address] [facility] [address] [facility] [address] [place] [address] PCP - General Internal Medicine 12/21/24
--- OUTSIDE RECORDS SUMMARY | 2025-05-08 07:54 | XMS_ITS | Referral Summary ---
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 [address] [place] [address] CIGNA Care Teams Proofreader Relationship Specialty Start Date End Date No, Physician PCP - General 02/15/24 Unknown, Notinfile 04/16/21
--- OUTSIDE RECORDS SUMMARY | 2025-05-08 07:54 | XMS_ITS | Clinical Summary ---
Author Organization [facility] [employer] Address [address] [place] [address] Care Team Providers Care In Service Coordinator Name Role Phone Stephon Rodriguez MD Primary Care Provider [phone] Source Comments [facility] [employer],non-owned Affiliates and Associated Physician Practices is amultiple site organization consisting of ambulatory clinics and hospital sitesin [place], [place], [place] and [place]. This disclosure is being madepursuant to the Care Everywhere program and may not contain all information available regarding this patient. Last updated 18.[facility] [employer] Allergies No known active allergies Medications * Be aware that medications may not be up to date on this document. Alwaysverify current medications with the patient. ferrous sulfate 325 (65 FE) MG tablet Take 1 (one) tablet by mouth once daily Active ibuprofen (Motrin) 600 MG tablet Take 1 (one) tablet by mouth every 6 hours as needed for Pain 40 tablet 1 3 Active Additional Information Patient not taking.Reported on 11/09/2023 docusate sodium (Colace) 100 MG capsule Take 1 (one) capsule by mouth 2 times daily 60 capsule 1 3 Active Additional Information Patient not taking.Reported on 05/30/2024 senna-docusate (Senokot-S) 8.6-50 MG tablet Take 1 (one) tablet by mouth once daily 100 tablet 3 Active Additional Information Patient not taking.Reported on 03/14/2024 ondansetron, disintegrating, (Zofran ODT) 4 MG tablet Take 1 (one) tablet by mouth every 6 hours as needed for Nausea/Vomiting Allow tablet to dissolve on the tongue 12 tablet 3 Active oxyCODONE, immediate release, (Roxicodone) 5 MG tabletIndicatio ns:Post-operati ve state Take 1 (one) tablet by mouth every 6 hours as needed for Pain 12 tablet 3 Active Additional Information Patient not taking.Reported on 11/09/2023 ALPRAZolam (Xanax) 0.25 MG tablet Take 1 (one) tablet by mouth once daily as needed 3 Active meclizine (Antivert) 25 MG tablet Take 1 (one) tablet by mouth 3 times daily as needed For dizziness. 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 S/P total hysterectomy and B SO (bilateral salpingo-oophorectomy) 10/05/2023 Lung mass 10/05/2023 Family History Medical History Relation Name Comments Cancer - Colon Maternal Grandfather Relation Name Status Comments Maternal Grandfather Social History Tobacco Use Types Packs/Day Years Used Date Smoking Tobacco: Former Cigarettes Passive Smoke Exposure: Past Smokeless Tobacco: Never Tobacco Cessation:Counseling Given: Not Answered Alcohol Use Standard Drinks/Week Comments Yes 0 (1 standard drink = 0.6 oz pur e alcohol) RARE Comments No Sex and Gender Information Value Date Recorded Sex Assigned at Not on file Legal Sex Female 11:16 AM CDT Gender Identity Not on file Sexual Orientation Not on file Last Filed Vital Signs Vital Sign Reading Time Taken Comments Blood Pressure 132/92 05/30/2024 2:30 PM CDT Pulse 80 09/20/2023 3:01 PM NYLON MACHINE OPERATOR Temperature 36.2 C (97.2 F) 09/20/2023 12:20 PM NYLON MACHINE OPERATOR Respiratory Rate 18 09/20/2023 3:01 PM NYLON MACHINE OPERATOR Oxygen Saturation 95% 09/20/2023 3:01 PM NYLON MACHINE OPERATOR Inhaled Oxygen Concentration - - Weight 71.5 kg (157 lb 9.6 oz) 05/30/2024 2:30 P M CDT Height 157.5 cm (5' 2) 05/30/2024 2:30 PM CDT Body Mass Index 28.83 05/30/2024 2:30 PM CDT Plan of Treatment Health Maintenance Due Date Last Done Comments COLOGUARD (AGES 45-75) - COLON CA SCREENING 1962 COLON MONITORING 1962 COLONOSCOPY - COLON CA SCREENING 1962 CT COLONOGRAPHY - COLON CA SCREENING 1962 Colorectal Cancer Screening 1962 FIT - COLON CA SCREENING 1962 FLEX SIG - COLON CA SCREENING 1962 MAMMOGRAM 1962 HIV SCREENING 1977 HEPATITIS C SCREENING 05/14/1980 DTAP/TDAP/TD VACCINES (1 - Tdap) 1981 PNEUMOCOCCAL VACCINE 50+ (1 of 1 - PCV) 2012 ZOSTER VACCINE (1 of 2) 2012 COVID-19 VACCINE (1 - season) 2024 DEPRESSION SCREENING 10/17/2024 INFLUENZA VACCINE (#1) 2025 SCREENING FOR DIABETES 12/03/2026 , 12/02/2023, 12/02/2023, Additional history exists LIPID TESTING 12/01/2028 12/01/2023 Respiratory Syncytial Virus (RSV) Vaccine Pt: or over 60 yrs (1 - 1-dose 75+ series) 2037 HEPATITIS B VACCINE Aged Out No longe r eligible based on patient's age to complete this topic HIB VACCINE Aged Out No longer eligi ble based on patient's age to complete this topic HPV VACCINE Aged Out No longer eligi ble based on patient's age to complete this topic MENINGOCOCCAL (Group B) VACCINE SHARED DECISION-MAKING Aged Out No longer eligible based on patient's age to complete this topic MENINGOCOCCAL GROUPS A/C/Y/W VACCINE Aged Out No longer eligible based on patient's age to complete this topic Insurance [facility] Member Subscriber Plan / Payer (Ef fective for All Dates) Name:Carmen Hill Member ID:Not on file Relation to Subscriber:Not on file Name:CARMEN HILL Subscriber ID:Not on file Address: [address] [address] Payer ID:Not on file Group ID:Not on file Type:Self Pay Address: [place], [place] * Guarantor: CARMEN HILL Account Type Relation to Patient Date of Phone Billing Address Personal/Family Spouse [address] Care Teams In Service Coordinator Relationship Specialty Start Date End Date Stephon Rodriguez MD [address] [place] [address] PCP - General Family Medicine 08/31/23
--- OUTSIDE RECORDS SUMMARY | 2025-05-08 07:54 | XMS_ITS | Encounter Summary ---
Author Organization [facility] Address 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 Gender Identity Not on file Sexual Orientation Not on file documented as of this encounter Plan of Treatment Upcoming Encounters Date Type Department Care Team (Late st Contact Info) Description 07/05/2025 12:45 PM CDT Office Visit [facility] Oncology and Hematology - [place] [address] [place] [address] [address] [place] [address] Jimmy Cunningham MD [address] [facility] [address] [place] [address] documented as of this encounter Visit Diagnoses Not on filedocumented in this encounter Care Teams Steel Post Installer Relationship Specialty Start Date End Date Levi Maria DO [address] [place] [address] PCP - General Internal Medicine 12/21/24 documented as of this encounter
[2025-05-08 09:58] LABS: Cholesterol 255 mg/dL (0-200); HDL Direct 44 mg/dL; Triglycerides 131 mg/dL (<150)
== END 2025-05-08 07:49 | disposition home or self-care (01) ==
LOC: ANHLAB 07:51
PROVIDERS: PCP Internal Medicine; Visit Provider Internal Medicine
DX: E55.9 Vitamin D deficiency, unspecified (principal); E78.5 Hyperlipidemia, unspecified
CPT/HCPCS: 36415; 80061; 82306

== ENCOUNTER 2025-06-27 14:00 | Outpatient (CLI) | payer OTHER, SELFPAY ==
--- OUTSIDE RECORDS SUMMARY | 2011-04-18 19:00 | XMS_ITS | Continuity of Care Document ---
Author Organization [facility] Address [address] [place] [address] Phone Care Team Providers Care Fitness Club Manager Name Role Phone Tc Hazel DO Unavailable Unavailable Medications Medication Instructions Dosage Effective Dates (start - stop) Status Comments PHENTERMINE 37.5MG TABLET 1 QAM - No Longer Active PHENTERMINE HCL 37.5MG TABS 1 QAM - No Longer Active SULFAMETHOXAZOLE/TRIM ETHOPRIM 1 BID - No Longer Active Advance Directives Directive Yes / No Effective Date File Name No Information Encounters Encounter Description Practice Location Reason(s) For Visit Diagnoses Date Provider Providers Copied on Encounter [employer], [address], [place], [place], [address], tel:[phone] Hazel No Information 1 Yasemin Montez. [address] [place] [address], [id number], . tel:[phone] [employer], [address], [place], [place], [address], tel:[phone] Hazel ACC-HYPODERMIC NEEDLE 4 Yasemin Montez. [address] [place], [place], [id number], . tel:[phone] [employer], [address], [place], [place], [address], tel:[phone] Hazel BACKACHE NOSMALAISE AND FATIGUE NECPURPURA NOSLONG-TERM USE MEDS NEC 6200 4 Yasemin Montez. [facility], [place], [place], [address], [place]. tel:[phone] [facility], [address], [place], [place], [address], [place] tel:[phone] Hazel HYPOTHYROIDISM NOS Jun-3 0-200 3 Hazel Tc. [address] [facility], [place], [place], [address], [place]. tel:[phone] [facility], [address], [place], [place], [address], [place] tel:[phone] Hazel ABNORMAL WEIGHT GAIN 9200 3 Conversion Doctor. [facility], [place], [address], [place]. [facility], [address], [place], [place], [address], [place] tel:[phone] Hazel ACNE NEC 4200 3 Conversion Doctor. [facility] [place], [address], [place]. 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 [facility], [place], [place], [address]. tel:[phone] [facility], [address], [place], [place], [address], [place] tel:[phone] Hazel SPRAIN SHOULDER/ARM NEC Jul- 1-200 2 Lee Claire. [address] [place] [address], [place], [place], [address]. tel:[phone] [facility], [address], [place], [place], [address], [place] tel:[phone] Hazel HEAD INJURY NOSCERVICALGIA Jul-0 8-200 2 Lee Claire. [address] [place] [address], [place], [place], [address]. tel:[phone] [facility], [address], [place], [place], [address], [place] tel:[phone] Hazel METRORRHAGIA May-2 0-200 2 Hazel Tc. [address] [facility], [place], [place], [address], . tel:[phone] [facility], [address], [place], [place], [address], tel:[phone] Yasemin CONTRACEPT SURVEILL NEC 3-200 2 Yasemin Montez. [address] [facility], [place], [place], [address], . tel:[phone] [facility], [address], [place], [place], [address], tel:[phone] Hazel HYPERTENSION NOS Dec 0-200 1 Yasemin Montez. [facility], [place], [place], [address], . tel:[phone] [facility], [address], [place], [place], [address], tel:[phone] Hazel HEMATURIA 1-200 1 Yasemin Montez. [address] [place] [address], [place], [place], [address], . tel:[phone] Family History Family Member Type Diagnosis Age At Onset No Information Payers Payer name Insurance type Covered libertarian ID Authoriza tion(s) No Information Social History Type Description Quantity Date Captured Comments Sex Female Smoking Status No Information Chief Complaint And Reason For Visit No Information Reason For Referral Reason For Referral No Information History Of Present Illness Encounter Date Complaint History Of Prese nt Illness No Information Functional Status Date Functional Assessmen t No Information Instructions Date Instruction Additional Infor mation No Information Assessments Type Assessment Date No Information Patient Care Teams Name Effective Dates (start - stop) Status Members No Information
--- OUTSIDE RECORDS SUMMARY | 2021-10-26 07:08 | XMS_ITS | Continuity of Care Document ---
Author Organization [facility] Address [address] [place] [address] Phone Care Team Providers Care Franchise Sales Manager Name Role Phone Theron Griffin MD Unavailable Unavailable Advance Directives Directive Yes / No Effective Date File Name No Information Encounters Encounter Description Practice Location Reason(s) For Visit Diagnoses Date Provider Providers Copied on Encounter [employer], [address], [place], [place], [address], [place] tel:[phone] [facility] No Information Elias Crump. [address] [place] [address], [facility] [address] , [place], [place], [address], [place]. tel:[phone] Family History Family Member Type Diagnosis Age At Onset No Information Payers Payer name Insurance type Covered democrat ID Authoriza tion(s) No Information Social History [...]
[2025-06-27 14:20] LABS: Hematocrit 43.6 % (37.0-47.0); Hemoglobin 14.3 g/dL (12.0-15.0); Immature Granulocyte Percent A 0.5 % (0-0.5); Lymphocytes Absolute Auto 1.30 K/mm3 (0.9-3.2); Mean Corpuscular HGB Conc 32.8 g/dl (32-36); Mean Corpuscular Hemoglobin 30.4 pg (26-34); Mean Corpuscular Volume 92.6 fl (80-100); Nucleated Red Blood Cells Absolute Auto 0.000 K/mm3 (0.0-0.012); Nucleated Red Blood Cells Perc 0.0 % (0.0-0.2); Platelet Count Result 259 k/mm3 (150-375); Red Blood Count 4.71 M/mm3 (4.2-5.4); White Blood Count 6.4 K/mm3 (4.5-10.0)
[2025-06-27 14:46] LABS: Alanine Aminotransferase 15 U/L (6-35); Albumin Level 4.1 g/dL (3.5-5.1); Alkaline Phosphatase 96 U/L (38-126); Anion Gap 9 mmol/L (4-12); Aspartate Amino Transferase 23 U/L (14-36); Bilirubin,Total 0.3 mg/dL (0.2-1.3); Blood Urea Nitrogen 13 mg/dL (7-17); Calcium 9.2 mg/dL (8.4-10.2); Carbon Dioxide 29 mmol/L (22-30); Chloride 102 mmol/L (98-107); Estimated Glomerular Filt Rate 59; Glucose 117 mg/dL (65-110); Potassium 3.5 mmol/L (3.4-5.0); Sodium 140 mmol/L (137-145); Total Protein 6.7 g/dL (6.3-8.2)
--- OUTSIDE RECORDS SUMMARY | 2025-06-27 15:49 | XMS_ITS | Encounter Summary ---
Author Organization [facility] Address 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 Gender Identity Not on file Sexual Orientation Not on file documented as of this encounter Plan of Treatment Upcoming Encounters Date Type Department Care Team (Late st Contact Info) Description 07/05/2025 12:45 PM CDT Office Visit [facility] Oncology and Hematology - [place] [address] [place] [address] [address] [place] [address] Jimmy Cunningham MD [address] [facility] [address] [place] [address] documented as of this encounter Visit Diagnoses Not on filedocumented in this encounter Care Teams Electrocardiogram Technician Relationship Specialty Start Date End Date Levi Maria DO [address] [place] [address] PCP - General Internal Medicine 12/21/24 documented as of this encounter
--- OUTSIDE RECORDS SUMMARY | 2025-06-27 15:49 | XMS_ITS | Encounter Summary ---
Author Organization [facility] Address 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 Gender Identity Not on file Sexual Orientation Not on file documented as of this encounter Plan of Treatment Upcoming Encounters Date Type Department Care Team (Late st Contact Info) Description 07/05/2025 12:45 PM CDT Office Visit [facility] Oncology and Hematology - [place] [address] [place] [address] [address] [place] [address] Jimmy Cunningham MD [address] [facility] [address] [place] [address] documented as of this encounter Visit Diagnoses Not on filedocumented in this encounter Care Teams Javascript Software Engineer Relationship Specialty Start Date End Date Levi Maria DO [address] [place] [address] PCP - General Internal Medicine 12/21/24 documented as of this encounter
--- OUTSIDE RECORDS SUMMARY | 2025-06-27 15:49 | XMS_ITS | Clinical Summary ---
Author Organization [facility] Eulalia Arreguin Address [address] [place] [address] Care Team Providers Care Business Analytics Specialist Name Role Phone Levi Maria DO Primary Care Provider Allergies No known active allergies Medications cholecalciferol, [...] Encounters Date Type Department Care Team Description 06/05/2025 External Device Data STL ABSTRACTION Provider, Abstract 06/04/2025 External Device Data STL ABSTRACTION Provider, Abstract 05/22/2025 External Device Data STL ABSTRACTION Provider, Abstract 05/01/2025 External Device Data STL ABSTRACTION Provider, [...] = 0.6 oz pur e alcohol) occasional Feeling Safe Answer Date Recorded Are you in a relationship wi th someone who hurts you emotionally and/or physically? No 12/01/2023 Food Insecurity Answer Date Recorded Social/Environmental Concerns No concerns Transportation Needs Answer Date Record ed Social/Environmental Concerns No concerns Housing Stability Answer Date Recorded Social/Environmental Concerns No concerns Utility Needs Answer Date Recorded Social/Environmental Concerns No concerns Comments No Sex and Gender Information Value Date Recorded Sex Assigned at Not on file Legal Sex Female 3:43 AM TOWER FOREMAN Gender Identity Not on file Sexual Orientation Not on file Last Filed Vital Signs Vital Sign Reading Time Taken Comments Blood Pressure 132/83 12/21/2024 12:14 PM TOWER FOREMAN Pulse 74 12/21/2024 12:11 PM TOWER FOREMAN Temperature 35.8 C (96.5 F) 12/21/2024 12:11 PM TOWER FOREMAN Respiratory Rate 16 12/21/2024 12:11 PM TOWER FOREMAN Oxygen Saturation 98% 12/21/2024 12:11 PM TOWER FOREMAN Inhaled Oxygen Concentration - - Weight 73.7 kg (162 lb 6.4 oz) 12/21/2024 12:11 PM TOWER FOREMAN Height 157.5 cm (5' 2) 12/28/2023 10:24 AM CDT Body Mass Index 29.7 12/28/2023 10:24 AM CDT Plan of Treatment Upcoming Encounters Date Type Department Care Team (Late st Contact Info) Description 07/05/2025 12:45 PM CDT Office Visit [facility] Oncology and Hematology - [place] [address] [facility] [address] [place] [address] Jimmy Cunningham MD [address] [facility] [address] [place] [address] Health Maintenance Due Date Last Done Comments DTAP/TDAP/TD VACCINES (1 - Tdap) 1981 BREAST CANCER SCREENING 2002 COLORECTAL SCREENING 2007 Colorectal Cancer Screening 2007 FIT-DNA Q 3 years 2007 FIT/FOBT Q 1 year 2007 Flex Sig/CT Colonography Q 5 years 2007 ZOSTER VACCINE (1 of 2) 2012 Preventative Visit- Commercial 10/17/2024 INFLUENZA VACCINE (#1) 2025 Pre-Diabetes and Diabetes Screening 11/02/202611/02 RSV VACCINE (60+ or ) (1 - 1-dose 75+ series) 2037 Medical Devices Implanted Type Area Balance Engineer Device Identifier Shelf Expiration Date Model / Serial / Lot Clip Hemolok Ml [id number] - Csc - [id number] Implanted:Qty : 1 on 12/01/2023 by Vicente Lorenzo MD at [facility] Clip Left: Lung TELEFLEX- WECK CLOSURE SYS 12/06/2027 [id number] / / [id number] Sealant Progel Pleural 4ml [id number] - [id number] Implanted:Qty : 1 on 12/01/2023 by Vicente Lorenzo MD at [facility] Tissue Left: Lung BARD DAVOL [id number] 01/07/2025 [id number] / / [id number] Procedures Procedure Name Priority Date/Time Associated Diagnosis Comments HEMOGLOBIN A1C Routine 11/02/2023 3:59 PM TOWER FOREMAN Lung nodule Shortness of breath from Last 3 Months or Most Recently Relevant to Health Maintenance Results * HEMOGLOBIN A1C (11/02/2023 3:59 PM TOWER FOREMAN) HEMOGLOBIN A1C 5.6 <5.7 % 11/02/2023 5:26 PM TOWER FOREMAN [facility] EST. AVG GLUCOSE, A1C 114 mg/dL 11/02/2023 5:26 PM TOWER FOREMAN [facility] Blood Venipuncture / Unknown 11/02/2023 3:59 PM TOWER FOREMAN 11/02/2023 4:53 PM TOWER FOREMAN Narrative [facility] - 11/02/2023 5:26 PM TOWER FOREMAN HGB A1C INTERPRETATION NORMAL: <5.7% PRE-DIABETES: 5.7 - 6.4% DIABETES: 6.5% OR GREATER Aidajose e Chapin MANAGER OF INVESTIGATIONS CHEMISTRY ORDERABLES Final Resu lt [facility]# [id number] [address] [place] [id number] from Last 3 Months or Most Recently Relevant to Health Maintenance Insurance [facility] CORE [id number] RX OPTUM RX Member Subscriber Plan / Payer (Ef fective 2023-Present) Name:Oly Hill Relation to Subscriber:Not on file Name:Oly Hill Subscriber ID:Not on file Date of :1960 (Work) Payer ID:Not on file Type:RX Commercial Address: [address] [facility] [id number] Advance Directives For more information, please contact: [phone] * Full Code (Latest Code Status on File) Date Activated Date Inactivated Comments 12/01/2023 2:19 PM 12/06/2023 1:48 PM * Full Code Date Activated Date Inactivated Comments 12/01/2023 6:11 AM 12/01/2023 2:19 PM Care Teams Business Analytics Specialist Relationship Specialty Start Date End Date Levi Maria DO [address] [facility] [address] [place] [address] PCP - General Internal Medicine 12/21/24
--- OUTSIDE RECORDS SUMMARY | 2025-06-27 15:49 | XMS_ITS | Clinical Summary ---
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
== END 2025-06-27 14:01 | disposition home or self-care (01) ==
LOC: ANHLAB 14:02
PROVIDERS: PCP Internal Medicine; Visit Provider Internal Medicine Hematology & Oncology
DX: C34.90 Malignant neoplasm of unspecified part of unspecified bronchus or lung (principal)
CPT/HCPCS: 36415; 80053; 85025

== ENCOUNTER 2025-06-28 07:58 | Outpatient (CLI) | payer OTHER, SELFPAY ==
--- OUTSIDE RECORDS SUMMARY | 2011-04-18 19:00 | XMS_ITS | Continuity of Care Document ---
Author Organization [facility] Address [address] [place] [address] Phone Care Team Providers Care Outside Sales Account Representative Name Role Phone Tc Hazel DO Unavailable [...] Diagnoses Date Provider Providers Copied on Encounter [employer], [address], [place], [place], [address], tel:[phone] Hazel No Information 1 Yasemin Montez. [address] [place] [address], [id number], . tel:[phone] [employer], [address], [place], [place], [address], tel:[phone] Hazel ACC-HYPODERMIC NEEDLE 4 Yasemin Montez. [address] [place], [place], [address], . tel:[phone] [employer], [address], [place], [place], [address], tel:[phone] Hazel BACKACHE NOSMALAISE AND FATIGUE NECPURPURA NOSLONG-TERM USE MEDS NEC 6200 4 Yasemin Montez. [facility], [place], [place], [address], [place]. tel:[phone] [facility], [address], [place], [place], [address], [place] tel:[phone] Hazel HYPOTHYROIDISM NOS Jun-3 0-200 3 Hazel Tc. [address] [facility], [place], [place], [address], [place]. tel:[phone] [facility], [address], [place], [place], [address], [place] tel:[phone] Hazel ABNORMAL WEIGHT GAIN 9200 3 Conversion Doctor. [facility], [place], [address], [place]. [facility], [address], [place], [place], [address], [place] tel:[phone] Hazel ACNE NEC 4200 3 Conversion Doctor. [facility] [place], [address], [place]. 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 [facility], [place], [place], [address]. tel:[phone] [facility], [address], [place], [place], [address], [place] tel:[phone] Hazel SPRAIN SHOULDER/ARM NEC Jul- 1-200 2 Lee Claire. [address] [place] [address], [place], [place], [address]. tel:[phone] [facility], [address], [place], [place], [address], [place] tel:[phone] Hazel HEAD INJURY NOSCERVICALGIA Jul-0 8-200 2 Lee Claire. [address] [place] [address], [place], [place], [address]. tel:[phone] [facility], [address], [place], [place], [address], [place] tel:[phone] Hazel METRORRHAGIA May-2 0-200 2 Hazel Tc. [address] [facility], [place], [place], [address], . tel:[phone] [facility], [address], [place], [place], [address], tel:[phone] Yasemin CONTRACEPT SURVEILL NEC 3-200 2 Yasemin Montez. [address] [facility], [place], [place], [address], . tel:[phone] [facility], [address], [place], [place], [address], tel:[phone] Hazel HYPERTENSION NOS Dec 0-200 1 Yasemin Montez. [facility], [place], [place], [address], . tel:[phone] [facility], [address], [place], [place], [address], tel:[phone] Hazel HEMATURIA 1-200 1 Yasemin Montez. [address] [place] [address], [place], [place], [address], . tel:[phone] Family History Family Member Type Diagnosis Age At Onset No Information Payers Payer name Insurance type Covered alliance party ID Authoriza tion(s) No Information Social History [...]
--- OUTSIDE RECORDS SUMMARY | 2021-10-26 07:08 | XMS_ITS | Continuity of Care Document ---
Author Organization [facility] Address [address] [place] [address] Phone Care Team Providers Care Sign Shop Supervisor Name Role Phone Theron Griffin MD Unavailable Unavailable Advance Directives Directive Yes / No Effective Date File Name No Information Encounters Encounter Description Practice Location Reason(s) For Visit Diagnoses Date Provider Providers Copied on Encounter [employer], [address], [place], [place], [address], [place] tel:[phone] [facility] No Information Elias Crump. [address] [place] [address], [facility] [address] , [place], [place], [address], [place]. tel:[phone] Family History Family Member Type Diagnosis Age At Onset No Information Payers Payer name Insurance type Covered constitution party ID Authoriza tion(s) No Information Social [...]
--- NOTE | ~2025-06-28 | CT_ITS ---
EXAMINATION:CT diagnostic chest w con DATE: 06/28/2025 08:45 INDICATION: Malignant neoplasm of lung. TECHNIQUE: Computed tomography (CT) of the chest was performed with 75 mL Omnipaque 350 intravenous contrast. Automated exposure control and iterative reconstruction technique were employed. The dose-length product (DLP) was 161.34 mGy-cm. COMPARISON: Chest CT 12/14/2024 FINDINGS: There is mild scarring at the lung apices. There is mild emphysema. There is mild atelectasis bilaterally. 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 The previously described right lower lobe nodule has resolved. No pleural effusion. The heart size is normal. No pericardial effusion. There is a 14 mm cyst in the liver. There is a 3.9 cm cyst in left kidney. There is mild thoracic spondylosis. IMPRESSION: 1. No evidence of metastatic disease. Reviewed, dictated and finalized at location E.
--- OUTSIDE RECORDS SUMMARY | 2025-06-28 08:06 | XMS_ITS | Encounter Summary ---
Author Organization [facility] Address [address] [place] [address] Care Team Providers Care Host Hostess Name Role Phone Levi Maria DO Primary Care Provider [phone] Encounter Details Date Type Department Care Team (Late st Contact Info) Description 12/25/1999 Outpatient Historical [facility] [address] [place] [address] Stan Jeffrey DO NO ADDRESS ON FILE Social History Tobacco Use Types Packs/Day Years Used Date Smoking Tobacco: Never Assessed Comments Unknown Sex and Gender Information Value Date Recorded Sex Assigned at Not on file Legal Sex Female 3:43 AM RN RADIATION ONCOLOGY Gender Identity Not on file Sexual Orientation Not on file documented as of this encounter Plan of Treatment Upcoming Encounters Date Type Department Care Team (Late st Contact Info) Description 07/05/2025 12:45 PM CDT Office Visit [facility] Oncology and Hematology - [place] [address] [place] [address] [address] [place] [address] Jimmy Cunningham MD [address] [facility] [address] [place] [address] documented as of this encounter Visit Diagnoses Not on filedocumented in this encounter Care Teams Host Hostess Relationship Specialty Start Date End Date Levi Maria DO [address] [place] [address] PCP - General Internal Medicine 12/21/24 documented as of this encounter
--- OUTSIDE RECORDS SUMMARY | 2025-06-28 08:06 | XMS_ITS | Clinical Summary ---
Author Organization [facility] Address [address] [place] [address] Care Team Providers Care Scientologist Name Role Phone Unknown, Notinfile Unavailable Unavailable No, Physician Primary Care Provider [phone] Allergies No known active allergies Medications buPROPion [...] on file Legal Sex Female 10:34 AM ANALYTICAL RESEARCH PROGRAM MANAGER Gender Identity Not on file Sexual Orientation [...] Plan of Treatment Not on file Insurance [facility] [employer] Address: [facility] [id number] [place] [address] [facility] [facility] [employer] [employer] Address: [facility] [id number] [place] [address] [facility] [employer] Address: [facility] [id number] [place] [address] [employer] [employer] Address: [facility] [address] [place] [address] Care Teams Scientologist Relationship Specialty Start Date End Date No, Physician PCP - General 02/15/24 Unknown, Notinfile 04/16/21
--- OUTSIDE RECORDS SUMMARY | 2025-06-28 08:06 | XMS_ITS | Clinical Summary ---
Author Organization [facility] [employer] Address [address] [facility] [place] [address] Care Team Providers Care Special Crimes Investigator Name Role Phone Stephon Rodriguez MD Primary Care Provider [phone] Source Comments [facility] [employer],non-owned Affiliates and Associated Physician Practices is amultiple site organization consisting of ambulatory clinics and hospital sitesin [place], [place], [place] and [place]. This disclosure is being madepursuant to the Care Everywhere program and may not contain all information available regarding this patient. 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 Temperature 36.2 C (97.2 F) 09/20/2023 12:20 PM STRAIGHT SLICING MACHINE OPERATOR Respiratory Rate 18 09/20/2023 3:01 PM STRAIGHT SLICING MACHINE OPERATOR Oxygen Saturation 95% 09/20/2023 3:01 PM STRAIGHT SLICING MACHINE OPERATOR Inhaled Oxygen Concentration - - Weight 71.5 kg (157 lb 9.6 oz) 05/30/2024 2:30 P M CDT Height 157.5 cm (5' 2) 05/30/2024 2:30 PM CDT Body Mass Index 28.83 05/30/2024 2:30 PM CDT Plan of Treatment Health Maintenance Due Date Last Done Comments COLOGUARD (AGES 45-75) - COL ON CA SCREENING 1960 COLON MONITORING 1960 COLONOSCOPY [...] 2012 ZOSTER VACCINE (1 of 2) 2012 SCREENING FOR DIABETES 03/14/2024 COVID-19 VACCINE (1 - 2023-2 5 season) 2024 DEPRESSION SCREENING 10/17/2024 INFLUENZA VACCINE (#1) 2025 LIPID TESTING 12/01/2028 12/01/2023 Respiratory Syncytial Virus [...] to complete this topic MENINGOCOCCAL (Group B) VACC INE SHARED DECISION-MAKING Aged Out No longer eligibl e based on patient's age to complete this topic MENINGOCOCCAL GROUPS A/C/Y/W VACCINE Aged Out No longer eligible b ased on patient's age to complete this topic Insurance SELF PAY NO INSURANCE Member Subscriber Plan / Payer (Ef fective for All Dates) Name:Carmen Hill Member ID:Not on file Relation to Subscriber:Not on file Name:CARMEN HILL Subscriber ID:Not on file Address: [address] [address] Payer ID:Not on file Group ID:Not on file Type:Self Pay Address: [place], [place] Care Teams Special Crimes Investigator Relationship Specialty Start Date End Date Stephon Rodriguez MD [address] [place] [address] PCP - General Family Medicine 08/31/23
--- OUTSIDE RECORDS SUMMARY | 2025-06-28 08:06 | XMS_ITS | Clinical Summary ---
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 Gender Identity Not on file Sexual Orientation Not on file Last Filed Vital Signs Vital Sign Reading Time Taken Comments Blood Pressure 132/83 12/21/2024 12:14 PM PACKING ROOM INSPECTOR Pulse 74 12/21/2024 12:11 PM PACKING ROOM INSPECTOR Temperature 35.8 C (96.5 F) 12/21/2024 12:11 PM PACKING ROOM INSPECTOR Respiratory Rate 16 12/21/2024 12:11 PM PACKING ROOM INSPECTOR Oxygen Saturation 98% 12/21/2024 12:11 PM PACKING ROOM INSPECTOR Inhaled Oxygen Concentration - - Weight 73.7 kg (162 lb 6.4 oz) 12/21/2024 12:11 PM PACKING ROOM INSPECTOR Height 157.5 cm (5' 2) 12/28/2023 10:24 AM CDT Body Mass Index 29.7 12/28/2023 10:24 AM CDT Plan of Treatment Upcoming Encounters Date Type Department Care Team (Late st Contact Info) Description 07/05/2025 12:45 PM CDT Office Visit [facility] Oncology and Hematology - [place] [address] [facility] [address] [place] [address] Jimmy Cunningham MD [address] [facility] [address] [place] [address] Health Maintenance Due Date Last [...] series) 2037 Medical Devices Implanted Type Area Sleeve Sewer Device Identifier Shelf Expiration Date Model / Serial / Lot Clip Hemolok Ml [id number] - Csc - [id number] Implanted:Qty : 1 on 12/01/2023 by Vicente Lorenzo MD at [facility] Clip Left: Lung TELEFLEX- WECK CLOSURE SYS 12/06/2027 [id number] / / [id number] Sealant Progel Pleural 4ml [id number] - [id number] Implanted:Qty : 1 on 12/01/2023 by Vicente Lorenzo MD at [facility] Tissue Left: Lung BARD DAVOL [id number] 01/07/2025 [id number] / / [id number] Procedures Procedure Name Priority Date/Time Associated Diagnosis Comments HEMOGLOBIN A1C Routine 11/02/2023 3:59 PM PACKING ROOM INSPECTOR Lung nodule Shortness of breath from Last 3 Months or Most Recently Relevant to Health Maintenance Results * HEMOGLOBIN A1C (11/02/2023 3:59 PM PACKING ROOM INSPECTOR) HEMOGLOBIN A1C 5.6 <5.7 % 11/02/2023 5:26 PM PACKING ROOM INSPECTOR [facility] EST. AVG GLUCOSE, A1C 114 mg/dL 11/02/2023 5:26 PM PACKING ROOM INSPECTOR [facility] Blood Venipuncture / Unknown 11/02/2023 3:59 PM PACKING ROOM INSPECTOR 11/02/2023 4:53 PM PACKING ROOM INSPECTOR Narrative [facility] - 11/02/2023 5:26 PM PACKING ROOM INSPECTOR HGB A1C INTERPRETATION NORMAL: <5.7% PRE-DIABETES: 5.7 - 6.4% DIABETES: 6.5% OR GREATER Aidajose e Chapin CUSTOMER ADVISOR SPECIALIST CHEMISTRY ORDERABLES Final Resu lt [facility]# [id number] [address] [place] [id number] from Last 3 Months or Most Recently Relevant to Health Maintenance Insurance [facility] CORE [id number] RX [employer] Member Subscriber Plan / Payer (Ef fective 2023-Present) Name:Oly Hill Relation to Subscriber:Not on file Name:Oly Hill Subscriber ID:Not on file Date of :1960 (Work) Payer ID:Not on file Type:RX Commercial Address: [address] [facility] [address] Advance Directives For more information, please contact: [phone] * Full Code (Latest Code Status on File) Date Activated Date Inactivated Comments 12/01/2023 2:19 PM 12/06/2023 1:48 PM * Full Code Date Activated Date Inactivated Comments 12/01/2023 6:11 AM 12/01/2023 2:19 PM Care Teams Americanization Teacher Relationship Specialty Start Date End Date Levi Maria DO [address] [facility] [address] [place] [address] PCP - General Internal Medicine 12/21/24
--- OUTSIDE RECORDS SUMMARY | 2025-06-28 08:06 | XMS_ITS | Encounter Summary ---
Author Organization [facility] Address 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 Gender Identity Not on file Sexual Orientation Not on file documented as of this encounter Plan of Treatment Upcoming Encounters Date Type Department Care Team (Late st Contact Info) Description 07/05/2025 12:45 PM CDT Office Visit [facility] Oncology and Hematology - [place] [address] [place] [address] [address] [place] [address] Jimmy Cunningham MD [address] [facility] [address] [place] [address] documented as of this encounter Visit Diagnoses Not on filedocumented in this encounter Care Teams Security Intern Relationship Specialty Start Date End Date Levi Maria DO [address] [place] [address] PCP - General Internal Medicine 12/21/24 documented as of this encounter
== END 2025-06-28 07:59 | disposition home or self-care (01) ==
PROVIDERS: PCP Internal Medicine; Visit Provider Internal Medicine Hematology & Oncology
DX: C34.90 Malignant neoplasm of unspecified part of unspecified bronchus or lung (principal)
CPT/HCPCS: 71260; Q9967